=== PATIENT | female | born 1940 | race Caucasian/White ===

== ENCOUNTER 2021-08-07 08:31 | Day surgery (SDC) | payer MEDICARE, OTHER ==
[2021-08-08] MEDS ORDERED: INDO50 PO (13:58)
[2021-08-08] MEDS ORDERED: LISI20 PO (13:58)
[2021-08-08] MEDS ORDERED: CHLO25B PO (13:58)
[2021-08-08] MEDS ORDERED: LEVSOD75 PO (13:58)
[2021-08-08] MEDS ORDERED: ASPI81CH PO (13:58)
== END 2021-08-07 23:09 | disposition home or self-care (01) ==
LOC: ORSCMMR 08:31 → MOI MAM 09:00 → ORSCMMR 23:09
DX: R92.8 Other abnormal and inconclusive findings on diagnostic imaging of breast (principal)
CPT/HCPCS: 19281; A4648

== ENCOUNTER → 2021-09-13 | Outpatient (CLI) | payer MEDICARE, OTHER ==
[~2021-09-13] MED LIST: ASPI81CH PO; CHLO25B PO; INDO50 PO; LEVSOD75 PO; LISI20 PO
[2021-09-17 14:09] LABS: M-SPIKE, % Not Observed % (Not Observed); PROTEIN,TOTAL,URINE 10.2 mg/dL (Not Estab.)
== END | disposition home or self-care (01) ==
LOC: LAB 10:14 → LAB SHORT 10:14 → LAB FUT 09-11 17:00
PROVIDERS: Internal Medicine
DX: E87.8 Other disorders of electrolyte and fluid balance, not elsewhere classified (principal)
CPT/HCPCS: 81050; 84156; 84166

== ENCOUNTER 2024-01-07 20:53 | Emergency (ER) | payer MEDICARE, OTHER ==
[~2024-01-07] VITALS: Ht 154.9 cm; Wt 75.3 kg
[~2024-01-07 20:53] MED LIST changes: +ANASTROZOLE1 M7 PO; +Carvedilol6.25 MG PO
[2024-01-07 21:30] VITALS: BP 246/67
[2024-01-07 21:54] LABS: BASOPHILS ABSOLUTE AUTO 0.08 K/mm3 (0.00-0.23); BASOPHILS PERCENT AUTO 1 % (0-2); EOSINOPHILS ABSOLUTE AUTO 0.23 K/mm3 (0.00-0.68); EOSINOPHILS PERCENT AUTO 3 % (0-6); Hematocrit 36.9 % (33.0-51.0); IMMATURE GRAN ABSOLUTE AUTO 0.02 K/mm3 (0.00-0.10); IMMATURE GRAN PERCENT AUTO 0 % (0-1); LYMPHOCYTES ABSOLUTE AUTO 1.11 K/mm3 (0.84-5.20); LYMPHOCYTES PERCENT AUTO 12 % (21-46); MONOCYTES ABSOLUTE AUTO 0.61 K/mm3 (0.16-1.47); MONOCYTES PERCENT AUTO 7 % (4-13); Mean Corpuscular HGB 27.4 pg (26.0-34.0); Mean Corpuscular HGB Conc 32.5 g/dL (31.5-36.5); Mean Corpuscular Volume 84 fL (80-100); Mean Platelet Volume 10.7 fL (9.1-12.4); NEUTROPHILS ABSOLUTE AUTO 7.17 K/mm3 (1.96-9.15); NEUTROPHILS PERCENT AUTO 78 % (41-73); Platelet Count 258 K/mm3 (150-400); RDW Coefficient Variation 13.5 % (11.7-14.2); RDW Standard Deviation 41.8 fL (35.1-46.3); Red Blood Cell Count 4.38 M/mm3 (3.80-5.20); White Blood Cell Count 9.22 K/mm3 (4.00-11.30)
[2024-01-07 22:17] LABS: Albumin, Blood 3.4 g/dL (3.4-5.0); Albumin/Globulin Ratio 0.9 (0.8-1.8); Bilirubin, Total 0.2 mg/dL (0.1-1.0); Bun/Creatinine Ratio 24.8 (12.0-20.0); Calcium, Blood 9.7 mg/dL (8.5-10.1); Creatinine, Blood 1.49 mg/dL (0.40-1.00); Globulin, Blood 3.7 g/dL (2.2-4.0); Potassium, Blood 4.4 mmol/L (3.5-5.5); Total Protein, Blood 7.1 g/dL (6.4-8.2)
== END 2024-01-07 23:39 | disposition home or self-care (01) ==
LOC: ER 20:53
PROVIDERS: Student in an Organized Health Care Education/Training Program
DX: K62.5 Hemorrhage of anus and rectum (principal); Z88.6 Allergy status to analgesic agent; Z88.5 Allergy status to narcotic agent; Z79.890 Hormone replacement therapy; Z79.899 Other long term (current) drug therapy
CPT/HCPCS: 80053; 85025; 99283

== ENCOUNTER 2024-10-21 22:22 | Emergency (ER) | payer OTHER, MEDICARE ==
[~2024-10-21] VITALS: Ht 154.9 cm; Wt 77.1 kg
[2024-10-21] MEDS ORDERED: ACET500 PO (23:57)
[2024-10-22 00:29] VITALS: BP 223/75
== END 2024-10-22 00:41 | disposition home or self-care (01) ==
LOC: ER 22:22
DX: S52.512A Displaced fracture of left radial styloid process, initial encounter for closed fracture (principal); S01.112A Laceration without foreign body of left eyelid and periocular area, initial encounter; I10 Essential (primary) hypertension; E03.9 Hypothyroidism, unspecified; W01.0XXA Fall on same level from slipping, tripping and stumbling without subsequent striking against object, initial encounter; Z79.899 Other long term (current) drug therapy; Z88.5 Allergy status to narcotic agent; Z88.1 Allergy status to other antibiotic agents
CPT/HCPCS: 12011; 70450; 73110; 99284-25; A9270